=== PATIENT | female | born 1940 | race Caucasian/White ===

== ENCOUNTER 2017-01-17 15:11 | Inpatient (IN) ==
--- NOTE | 2017-01-17 17:16 | Urology - Consult Note ---
Date of Encounter: 01/17/17 Time of Encounter: 17:13 - Assessment and Plan (1) Obstruction of left ureteropelvic junction (UPJ) due to stone Current Visit: Yes Status: Acute Assessment and plan: Patient has obstructing left UPJ stone. We will plan on taking the patient to the operating room tomorrow for cystoscopy and left ureteral stent placement. (2) Acute cystitis without hematuria Current Visit: Yes Status: Acute Assessment and plan: Recommend broad-spectrum antibiotic this time. We will need to send urine culture. Urology CN:HPI Consult date: 01/17/17 Reason for consult Urology: Other (left upj stone) Requesting physician: Babar Witt History of present illness: La Nena is a 76-year-old female with a history of transferred here from outside hospital secondary to obstructing left UPJ stone. Patient appears confused and is unclear regarding her prior stone history. It sounds like to me the patient had a right percutaneous nephrolithotomy with nephrostomy tube placement and stent placement. Documentation supports that the nephrostomy tube was removed either by accident or on purpose. CT scan done today reveals right ureteral stent in good position with residual stones and right lower pole. Patient also with left 9 mm UPJ stone. Patient also with nitrite positive urinalysis. WBC count of 13,000. Patient denies any nausea or vomiting but does state that she has pain throughout her body. She is unable to rate her pain at this time. Review of Systems - Constitutional fever(s) - EENT Nose, mouth and throat: no dizziness - Cardiovascular no chest pain - Respiratory no cough - Gastrointestinal abdominal pain - Musculoskeletal back pain - Integumentary no erythema - Neurological confusion - Psychiatric no anxiety - Hematologic/Lymphatic no easy bleeding Exam Initial Vital Signs Temp Pulse Resp BP Pulse Ox 99.0 F 90 16 181/87 96 01/17/17 16:43 01/17/17 16:43 01/17/17 16:43 01/17/17 16:43 01/17/17 16:43 - General physical appearance Present: well developed - Eyes Present: PERRL - ENT Present: normal nares - Neck Present: no masses - Respiratory Present: normal respiratory effort - Cardiovascular Cardiovascular exam IM: RRR - Abdomen Abdomen: Present: soft - Integumentary Present: no rash Urology Results - Labs All other labs normal. Consult Discharge Plan - Plan Referrals: Goyo Allen MD [Primary Care Provider] -
[2017-01-17] MEDS ORDERED: *HR* Morphine 2 MG/ML SYRINGE IVP PRN (23:07)
[2017-01-17] MEDS ORDERED: 0.9 % Sodium Chloride 1,000 ML IVC SCH (23:15)
[2017-01-18] MEDS ORDERED: Ondansetron ODT 4 MG TAB.RAPDIS SL PRN ×2 (00:51→09:39)
[2017-01-18] MEDS ORDERED: Naloxone 0.4 MG/ML INJ IVP PRN ×2 (00:51→09:39)
--- NOTE | 2017-01-18 00:56 | Internal Med History&Physical ---
<Laurel Alvarado - Last Filed: 01/18/17 00:49> Date of Encounter: 01/18/17 Time of Encounter: 00:30 Assessment and Plan (1) Obstruction of left ureteropelvic junction (UPJ) due to stone Current visit: Yes Status: Acute Patient was a transfer from [facility] due to CT abdomen and pelvis at [facility] showed 0.9mm calculus at the left ureteral pelvic junction. WBC 13,000 Urinalysis from [facility] showed leukocyte Esterase and nitrate positive. Patient has a history of right UPJ stone for which a nephrostomy tube placed at [facility] in October 2016. Patient is afebrile, vital stable. She reports improvement of pain but still has nausea. KUB showed left renal calculi measuring 11 mm at the area ureteral pelvic junction and a right ureteral stent. Urine culture pending Urology to take the patient to the operating room tomorrow for cystoscopy and left ureteral stent placement IV Levaquin IV fluids 80 ml/hr morphine PRN pain NPO Zofran PRN (2) Acute cystitis without hematuria Current visit: Yes Status: Acute Patient reports dysuria for one week duration. She admits frequency, urgency, bladder fullness, nausea. She denies hematuria, fever, chills. WBC 13,000 Urinalysis from [facility] showed leukocyte Esterase and nitrate positive. Patient is afebrile, vital stable. See plan above urine culture pending (3) Diabetes Current visit: Yes Status: Acute Patient reports history of diabetes Accu checks for close glucose monitoring continue home medications once reconciled and confirmed Qualifiers: Diabetes mellitus type: other specified (including WILIAM) Diabetes mellitus complication status: with unspecified complications Qualified Code(s): E13.8 - Other specified diabetes mellitus with unspecified complications (4) Hypertension Current visit: Yes Status: Acute Patient has a history of hypertension continue home medications once they had been reconciled and confirmed Qualifiers: Hypertension type: essential hypertension Qualified Code(s): I10 - Essential (primary) hypertension (5) DVT prophylaxis Current visit: Yes Status: Acute SCDP Internal Medicine - H&P: HPI Chief complaint: back hurts Admitted From: Home Plans for Post Hospital Care: Home History of present illness: Ms. Younger is a 76 year old female past medical history of diabetes, hypertension, and kidney stone presents as a transfer from [facility] due to left 0.9 mm calculus at the left UPJ. The patient reports that her low back pain started a week ago and is progressively worsened. She states that the pain radiates from her low back to her hips and down her legs bilaterally. She stated that she decided to go to the hospital when she can no longer sit up from a chair due to the pain. She admits dysuria, pelvic pressure, nausea. She denies fever, chills, hematuria, chest pain, shortness of breath, abdominal pain. She describes the pain as an achiness. She then went to [facility] initially for treatment. She stated that urinating seemed to help dysuria for short period of time. According to the patient and [facility] records in October 2016 the patient she had a right UPJ stone for which a nephrostomy tube placed at [facility]. However now she has a right ureteral stent. WBC 13,000 Urinalysis from [facility] showed leukocyte Esterase and nitrate positive. CT abdomen and pelvis at [facility] showed 0.9mm calculus at the left ureteral pelvic junction. She denies history of UTIs, travel. She is a full code. KUB showed left renal calculi measuring 11 mm at the area ureteral pelvic junction. And a right ureteral stent. Urine culture was collected. Urology was consulted and plans to take the patient to the operating room tomorrow for cystoscopy and left ureteral stent placement. Past Med Surg Social Fam HX - Past Medical History Medical history: diabetes, hypertension Psychiatric history: no psych history - Past Surgical History Surgical History: cholecystectomy, hysterectomy - Social History Smoking Status: Never smoker Smokeless Tobacco Status: No Alcohol use: none Drug use: none Current living situation: Home - Family History Father History Unknown: Yes Hx Family Neurologic Disorders: Yes (Alzheimer's) Mother Hx Family Cancer: Yes (Unknown) Internal Medicine - H&P: Meds 3 Allergy/AdvReac Type Severity Reaction Status Date / Time No Known Allergies Allergy Verified 01/17/17 17:58 All Systems PM: A 10-system review of systems was performed and is negative for pertinent findings except as documented above in the HPI. - Constitutional Constitutional: anorexia, malaise, no chills, no fever(s) - EENT Eyes: no change in vision - Cardiovascular Cardiovascular ROS IM: no chest pain, no diaphoresis, no palpitations - Respiratory Respiratory: cough, no dyspnea, no wheezing, no excessive phlegm production - Gastrointestinal Gastrointestinal: nausea, no abdominal pain, no diarrhea, no vomiting - Genitourinary Genitourinary: difficulty urinating, dysuria, flank pain, urinary frequency, urinary urgency, no hematuria, no vaginal pruritis - Musculoskeletal Musculoskeletal ROS IM: back pain, muscle weakness - Integumentary Integumentary IM: no erythema, no rash - Neurological Neurological ROS: no dizziness, no frequent falls, no headache(s) - Endocrine Endocrine IM: no flushing - Constitutional Vitals: Temp Pulse Resp BP Pulse Ox 98.4 F 92 16 174/74 96 01/18/17 00:00 01/18/17 00:00 01/18/17 00:00 01/18/17 00:00 01/18/17 00:00 General appearance: Present: A&O X 3, pleasant, no acute distress - Head Head exam: Present: atraumatic, normocephalic - Eye Eye exam: Present: conjuntiva pink. Absent: scleral icterus - ENT ENT exam: Present: mucous membranes dry - Respiratory Respiratory exam: Present: CTAB. Absent: rales, rhonchi, wheezes - Cardiovascular Cardiovascular exam: Present: RRR, +S1, +S2. Absent: clicks - GI/Abdominal GI/Abdominal exam: Present: normal bowel sounds, soft. Absent: firm, guarding - Extremities Exam Extremities exam: Present: normal inspection, tenderness, warm. Absent: joint swelling - Back Exam Back exam: Present: CVA tenderness (L), CVA tenderness (R). Absent: rash noted - Psychiatric Psychiatric exam: Present: normal affect, normal mood - Skin Skin exam: Present: dry, intact. Absent: rash Internal Med - H&P Results - Impressions ITS Impressions KUB X-Ray 01/17/17 17:13 IMPRESSION: Right ureteral stent noted. Left-sided renal calculi. Possible calculus at the left ureteropelvic junction. Again, no comparisons are available to gauge stability. D/ / Keenan Harmon MD / Keenan Harmon MD Interpreting Provider: Keenan Harmon MD <David Roberts - Last Filed: 01/18/17 06:32> Date of Encounter: 01/18/17 Internal Medicine - H&P: HPI History of present illness: Ms. Younger is a 76 year old female All Systems PM: A 10-system review of systems was performed and is negative for pertinent findings except as documented above in the HPI. - Constitutional Vitals: Temp Pulse Resp BP Pulse Ox 97.9 F 83 16 167/76 96 01/18/17 04:00 01/18/17 04:00 01/18/17 04:00 01/18/17 04:00 01/18/17 04:00 Internal Med - H&P Results - Labs CBC & Chem 7: 01/18/17 05:18 01/18/17 05:18 Labs: Short CBC 01/18/17 Range/Units 05:18 WBC 12.9 H (4.3-11.1) K/mcL Hgb 12.2 (11.5-15.4) g/dL Hct 37.7 (35.3-44.9) % Plt Count 380 (140-400) K/mcL Neutrophils # 10.1 H (1.6-8.9) K/mcL BMP 01/18/17 05:18 Sodium 138 Potassium 3.5 Chloride 106 Carbon Dioxide 21 BUN 13 Creatinine 1.15 H Glucose 296 H Calcium 8.8 - Impressions ITS Impressions KUB X-Ray 01/17/17 17:13 IMPRESSION: Right ureteral stent noted. Left-sided renal calculi. Possible calculus at the left ureteropelvic junction. Again, no comparisons are available to gauge stability. D/ / Keenan Harmon MD / Keenan Harmon MD Interpreting Provider: Keenan Harmon MD - Attending Attestation I conducted a face to face diagnostic evaluation of this patient and my medical decision-making was reviewed with the Resident Physician, Dr. Laurel Alvarado. I agree with the documented findings, disposition and treatment plan as described except to the extent set forth below: The patient is in no acute distress awake alert and oriented. Heart is regular , lungs are clear. Abdomen is soft and nontender. There is a healing surgical incision in the right lumbar area consistent with recent placement of nephrostomy tube. Per review of [facility] records patient had a right nephrostomy tube that she accidentally pulled out and the nephrostomy was internalized one week ago. Plan: IV antibiotics. IV fluids. Nothing by mouth. Urology consult.
[2017-01-18] MEDS ORDERED: Levofloxacin 750 MG/150 ML 750 MG/150 ML BAG IVPB SCH (02:00)
[2017-01-18 05:51] LABS: Basophils % 0.3 %; Eosinophils # 0.1 K/mcL (0.0-0.6); Eosinophils % 0.5 %; Hematocrit 37.7 % (35.3-44.9); Hemoglobin 12.2 g/dL (11.5-15.4); Immature Granulocytes % 0.6 % (0-4); Lymphocytes # 1.6 K/mcL (0.6-4.6); Lymphocytes % 12.2 %; Mean Corpuscular HGB Conc 32.4 g/dL (31.6-35.5); Mean Corpuscular Volume 83.4 fL (83.0-100.0); Mean Platelet Volume 10.1 fL (9.4-12.4); Neutrophils # 10.1 K/mcL (1.6-8.9); Platelet Count 380 K/mcL (140-400); Red Blood Count 4.52 M/mcL (3.82-4.97); Red Cell Distribution Width 14.5 % (11.5-14.5); Segmented Neutrophils % 78.4 %
[2017-01-18 06:02] LABS: Calcium 8.8 mg/dL (8.6-10.8); Potassium 3.5 mEq/L (3.5-4.5)
--- NOTE | 2017-01-18 07:15 | Urology Progress Note ---
Date of Encounter: 01/18/17 Time of Encounter: 07:15 - Assessment and Plan (1) Obstruction of left ureteropelvic junction (UPJ) due to stone Current Visit: Yes Status: Acute Assessment and plan: to or today for cysto and ureteral stent placement on left side (2) Acute cystitis without hematuria Current Visit: Yes Status: Acute Progress Note Narrative: patient seen. doing ok. Objective Initial Vital Signs Temp Pulse Resp BP Pulse Ox 99.0 F 90 16 181/87 96 01/17/17 16:43 01/17/17 16:43 01/17/17 16:43 01/17/17 16:43 01/17/17 16:43 - General physical appearance Present: well developed - Abdomen Present: soft - Labs 01/18/17 05:18 01/18/17 05:18 Diabetes panel 01/18/17 Range/Units 05:18 Sodium 138 (136-145) mEq/L Potassium 3.5 (3.5-4.5) mEq/L Chloride 106 (98-109) mEq/L Carbon Dioxide 21 (19-29) mEq/L BUN 13 (7-20) mg/dL Creatinine 1.15 H (0.57-1.11) mg/dL Glucose 296 H (70-99) mg/dL Calcium 8.8 (8.6-10.8) mg/dL Calcium panel 01/18/17 Range/Units 05:18 Calcium 8.8 (8.6-10.8) mg/dL Pituitary panel 01/18/17 Range/Units 05:18 Sodium 138 (136-145) mEq/L Potassium 3.5 (3.5-4.5) mEq/L Chloride 106 (98-109) mEq/L Carbon Dioxide 21 (19-29) mEq/L BUN 13 (7-20) mg/dL Creatinine 1.15 H (0.57-1.11) mg/dL Glucose 296 H (70-99) mg/dL Calcium 8.8 (8.6-10.8) mg/dL Adrenal panel 01/18/17 Range/Units 05:18 Sodium 138 (136-145) mEq/L Potassium 3.5 (3.5-4.5) mEq/L Chloride 106 (98-109) mEq/L Carbon Dioxide 21 (19-29) mEq/L BUN 13 (7-20) mg/dL Creatinine 1.15 H (0.57-1.11) mg/dL Glucose 296 H (70-99) mg/dL Calcium 8.8 (8.6-10.8) mg/dL Consult Discharge Plan - Plan Referrals: Goyo Allen MD [Primary Care Provider] -
--- NOTE | 2017-01-18 07:31 | Anesthesia Evaluation PreOp ---
Date of Encounter: 01/18/17 Time of Encounter: 07:24 - Past History Planned Operation: Cysto L ureteral stent Cardiac History: HTN Pulmonary History: Denies Any Significant HX Other Medical History: Diabetes Type II Anesthesia History: No Prior Anesthetic Complications, Past Anesthesia ( cholecystectomy, hysterectomy) Alcohol Use: none Drug use: none Medications and Allergies 3 Allergy/AdvReac Type Severity Reaction Status Date / Time No Known Allergies Allergy Verified 01/17/17 17:58 - Meds/Allergy Pre-op Review Medications Reviewed: Yes Allergies Reviewed: Yes Beta Blockers on Current Med List: No Anesthesia Results - Labs 01/18/17 05:18 01/18/17 05:18 Anesthesia Exam Vital Signs/O2 Sat, Most Current Temp Pulse Resp BP Pulse Ox 98.1 F 88 16 168/72 96 01/18/17 06:20 01/18/17 06:20 01/18/17 06:20 01/18/17 06:20 01/18/17 06:20 Height: 1.57m Weight: 96kg NPO (# of Hours): >8 - HEENT Pupil (Motor): Pupils equal, EOMI Mallampati: III Teeth: Poor dentition Oral Opening: Less than or equal to 3 - JEWELRY STORE MANAGER LOC: Oriented JEWELRY STORE MANAGER Motor: Normal RUE, Normal LUE, Normal RLE, Normal LLE, Normal Face JEWELRY STORE MANAGER Sensory: Normal: RUE, LUE, RLE, LLE, Face - Cardiac Rhythm: Regular - Pulmonary Breath Sounds: bilateral Clear Respiratory Effort: Symmetrical Anesthesia Assess/Plan ASA Score: 2 Modified Fatou Scale for Level of Consciousness: Cooperative, oriented, and tranquil Anesthetic Plan: General (r/b/a discussed, questions answered, consent obtained) Monitoring Plan: Standard Monitors Recovery Plan: PACU
[2017-01-18] MEDS ORDERED: Lidocaine -MPF 2% 2 ML VIAL ONE (07:34)
[2017-01-18] MEDS ORDERED: *HR* FentaNYL (PF) 100 MCG/2 ML VIAL ONE (07:35)
[2017-01-18] MEDS ORDERED: *HR* Propofol 200 MG/20 ML VIAL IVP ONE (07:35)
[2017-01-18] MEDS ORDERED: Ondansetron 4 MG/2 ML VIAL IVP ONE (07:39)
[2017-01-18] MEDS ORDERED: *HR* HYDROmorphone (PF) 1 MG/ML SYRINGE IVP PRN (07:39)
[2017-01-18] MEDS ORDERED: *HR* Meperidine 25 MG/ML SYRINGE IVP PRN (07:39)
[2017-01-18] MEDS ORDERED: Ringers Solution, Lactated 1,000 ML IVC SCH (07:45)
[2017-01-18] MEDS ORDERED: Ondansetron 4 MG/2 ML VIAL ONE (08:18)
[2017-01-18] MEDS ORDERED: Dexamethasone 4 MG/ML VIAL ONE (08:18)
--- NOTE | 2017-01-18 08:30 | Operative Note ---
Date of procedure: 01/18/17 Pre-op diagnosis: left upj stone with uti Post-op diagnosis: same Procedure: Cystoscopy and left 6 x 26 cm ureteral stent placement Anesthesia: BILLY Surgeon: Sotero Jin Condition: stable Disposition: PACU Procedure in Detail: Patient was prepped and draped in normal sterile fashion. Timeout procedure performed. I then inserted the cystoscope into the patient's bladder. I cannulated the left ureteral orifice using a Glidewire. This easily passed the left UPJ stone. I then was able to place a 6 x 24 cm stent with good curl seen in the bladder but the proximal curl was too short. I grabbed the stent and brought this out. Glidewire was placed back into the left ureteral orifice into the left kidney. I then placed a 6 x 26 cm stent with good curl seen in the upper pole of the kidney and in the bladder. Bladder was drained procedure was ended. Patient taken to PACU in stable condition.
[2017-01-18] MEDS ORDERED: *HR* Labetalol 20 MG/4 ML SYRINGE IVP ONE (09:04)
--- NOTE | 2017-01-18 09:07 | Anesthesia Evaluation Post Op ---
Date of Encounter: 01/18/17 Time of Encounter: 09:06 - Vital Signs Vital Signs: Vital Signs/O2 Sat, Most Current Temp Pulse Resp BP Pulse Ox 98.0 F 75 12 182/76 100 01/18/17 09:03 01/18/17 09:03 01/18/17 09:03 01/18/17 09:03 01/18/17 09:03 - Lungs Lungs: Clear Ascult./Percussion - Airway Airway: Non-obstructed - Cardiovascular Regular Rate - Mental Status Mental Status: Alert & Oriented, Answers Appropriately - Pain Pain Scale: 0 Pain Scale used: Numeric (1 - 10) - Nausea Vomiting Nausea Vomiting: Not Present - Hydration Hydration: NPO - Discharge PostOp Status: Transfer Patient to floor Attestation: I have assessed this patient and find they meet discharge criteria.
[2017-01-18] MEDS: *HR* Morphine 2 MG/ML SYRINGE IVP PRN ×2 (09:49→22:07)
[2017-01-18] MEDS: 0.9 % Sodium Chloride 1,000 ML IVC SCH ×2 (09:51→22:00)
--- NOTE | 2017-01-18 11:09 | Internal Med Progress Note ---
Date of Encounter: 01/18/17 Time of Encounter: 11:06 - Assessment and plan (1) Obstruction of left ureteropelvic junction (UPJ) due to stone Current Visit: Yes Status: Acute Assessment and plan: Patient was a transfer from [facility] due to CT abdomen and pelvis at [facility] showed 0.9mm calculus at the left ureteral pelvic junction. WBC 13,000 Urinalysis from [facility] showed leukocyte Esterase and nitrate positive. Patient has a history of right UPJ stone for which a nephrostomy tube placed at [facility] in October 2016. Patient is afebrile, vital stable. She reports improvement of pain but still has nausea. KUB showed left renal calculi measuring 11 mm at the area ureteral pelvic junction and a right ureteral stent. Urine culture pending, on levaquin Urology was consulted, had cystoscopy and left ureteral stent placement, tolerated procedure well. (2) Acute cystitis without hematuria Current Visit: Yes Status: Acute Assessment and plan: Continue Levaquin (3) Diabetes Current Visit: Yes Status: Chronic Assessment and plan: Not on medication will check A1c Qualifiers: Diabetes mellitus type: type 2 Diabetes mellitus complication status: with diabetic arthropathy Diabetes mellitus complication detail: with other arthropathy Diabetes mellitus restaurant greeter insulin use: without restaurant greeter use Qualified Code(s): E11.618 - Type 2 diabetes mellitus with other diabetic arthropathy (4) Hypertension Current Visit: Yes Status: Acute Assessment and plan: Patient was not on any medication before admission, she said that she was placed on some medication but stopped it due to cough. Will add amlodipine. Qualifiers: Hypertension type: essential hypertension Qualified Code(s): I10 - Essential (primary) hypertension (5) DVT prophylaxis Current Visit: Yes Status: Acute Assessment and plan: We will place subcutaneous heparin (6) Morbid obesity due to excess calories Current Visit: Yes Status: Chronic - Time Spent With Patient 25 - 35 minutes - Subjective Interval history: Patient was a transfer from [facility] due to CT abdomen and pelvis at [facility] showed 0.9mm calculus at the left ureteral pelvic junction. WBC 13,000 Urinalysis from [facility] showed leukocyte Esterase and nitrate positive. Patient report she was having burning or frequency urination for a few days and lower back pain. now she feels better, back pain resolved. She was not on blood pressure medications but her pressure is significantly elevated. We discussed her medical treatment for blood pressure. - Constitutional Vitals: Temp Pulse Resp BP Pulse Ox 98.4 F 82 12 198/73 95 01/18/17 09:40 01/18/17 09:40 01/18/17 09:40 01/18/17 09:40 01/18/17 09:40 CONSTITUTIONAL: patient appears as an age appropriate female in no acute distress. EYES Clear sclerae, bilateral pupils are equal, reactive to light. EMOI. RESPIRATORY: No accessory muscle use, bilateral clear to auscultation, no wheezing, no crackles/rales. CARDIOVASCULAR: Regular heart rate, normal S1 and S2, no murmurs GASTROINTESTINAL: bowel sounds present, soft, no tenderness. MUSCULOSKELETAL: Joints in normal range of motion, no clubbing, no edema, no cyanosis. Bilateral peripheral pulses 2+. NEUROLOGIC: CN II to XII are grossly intact, no focal neurological deficit. General appearance: Present: A&O X 3, pleasant, no acute distress Internal Medicine: Result - Labs CBC & Chem 7: 01/18/17 05:18 01/18/17 05:18 Labs: Short CBC 01/18/17 Range/Units 05:18 WBC 12.9 H (4.3-11.1) K/mcL Hgb 12.2 (11.5-15.4) g/dL Hct 37.7 (35.3-44.9) % Plt Count 380 (140-400) K/mcL Neutrophils # 10.1 H (1.6-8.9) K/mcL BMP 01/18/17 05:18 Sodium 138 Potassium 3.5 Chloride 106 Carbon Dioxide 21 BUN 13 Creatinine 1.15 H Glucose 296 H Calcium 8.8 - Impressions Impressions KUB X-Ray 01/17/17 17:13 IMPRESSION: Right ureteral stent noted. Left-sided renal calculi. Possible calculus at the left ureteropelvic junction. Again, no comparisons are available to gauge stability. D/ / Keenan Harmon MD / Keenan Harmon MD Interpreting Provider: Keenan Harmon MD Fluoroscopy 01/18/17 00:00 IMPRESSION: Intraprocedural fluoroscopic spot images as above. See separate procedure report for more information. D/ / 01/18/2017 09:04:21 Rylee Man / Michelle Joyner Interpreting Provider: Rylee Man Consult Discharge Plan - Plan Referrals: Goyo Allen MD [Primary Care Provider] -
[2017-01-18] MEDS: *HR* Heparin 5,000 UNIT/ML VIAL SQ SCH ×2 (16:35→21:59)
[2017-01-19] MEDS: *HR* Heparin 5,000 UNIT/ML VIAL SQ SCH ×3 (05:41→21:49)
[2017-01-19 06:29] LABS: Basophils % 0.2 %; Eosinophils % 0.2 %; Immature Granulocytes % 0.5 % (0-4); Lymphocytes # 1.9 K/mcL (0.6-4.6); Lymphocytes % 14.8 %; Mean Corpuscular HGB Conc 32.4 g/dL (31.6-35.5); Mean Corpuscular Volume 83.1 fL (83.0-100.0); Neutrophils # 9.8 K/mcL (1.6-8.9); Platelet Count 422 K/mcL (140-400); Red Blood Count 4.45 M/mcL (3.82-4.97); Red Cell Distribution Width 14.4 % (11.5-14.5); Segmented Neutrophils % 76.3 %
[2017-01-19 06:32] LABS: BUN/Creatinine Ratio 16 (6-26); Blood Urea Nitrogen 15 mg/dL (7-20); Carbon Dioxide 19 mEq/L (19-29); Chloride 111 mEq/L (98-109); Glucose 286 mg/dL (70-99); Osmolality,Calculated 299 (280-300); Potassium 2.8 mEq/L (3.5-4.5); Sodium 139 mEq/L (136-145); eGFR For African Americans > 60 (> 60); eGFR For Non-African Americans 59 (> 60)
[2017-01-19 06:36] LABS: Calcium 7.1 mg/dL (8.6-10.8)
[2017-01-19] MEDS ORDERED: amLODIPine 5 MG TABLET PO SCH (09:00)
--- NOTE | 2017-01-19 09:23 | Internal Med Progress Note ---
Date of Encounter: 01/19/17 Time of Encounter: 09:21 - Assessment and plan (1) Obstruction of left ureteropelvic junction (UPJ) due to stone Current Visit: Yes Status: Acute Assessment and plan: Patient was a transfer from [facility] due to CT abdomen and pelvis at [facility] showed 0.9mm calculus at the left ureteral pelvic junction. WBC 13,000 Urinalysis from [place] showed leukocyte Esterase and nitrate positive. Patient has a history of right UPJ stone for which a nephrostomy tube placed at [facility] in October 2016. Patient is afebrile, vital stable. She reports improvement of pain but still has nausea. KUB showed left renal calculi measuring 11 mm at the area ureteral pelvic junction and a right ureteral stent. Urology was consulted, had cystoscopy and left ureteral stent placement on January 18, tolerated procedure well. Patient continues complaining of burning urination and lower back pain urine looks cloudy we will recheck UA, and a change antibiotics to ceftriaxone. (2) Acute cystitis without hematuria Current Visit: Yes Status: Acute Assessment and plan: change levofloxacin to ceftriaxone (3) Diabetes Current Visit: Yes Status: Chronic Assessment and plan: Not on medication, pending A1c (4) Hypertension Current Visit: Yes Status: Acute Assessment and plan: Patient was not on any medication before admission, she said that she was placed on some medication but stopped it due to cough. BP improved we will increase amlodipine to 10 mg amlodipine. Qualifiers: Hypertension type: essential hypertension Qualified Code(s): I10 - Essential (primary) hypertension (5) DVT prophylaxis Current Visit: Yes Status: Acute Assessment and plan: We will place subcutaneous heparin (6) Morbid obesity due to excess calories Current Visit: Yes Status: Chronic - Time Spent With Patient Greater than 35 minutes - Subjective Interval history: Patient was a transfer from [facility] due to CT abdomen and pelvis at [facility] showed 0.9mm calculus at the left ureteral pelvic junction. WBC 13,000 Urinalysis from [place] showed leukocyte Esterase and nitrate positive. Urology was consulted and she had a cystoscope and the left ureteral stents placement on she tolerated procedure well. Patient is afebrile now, she still complaining burning and painful urination and that persistent lower back pain.. - Constitutional Vitals: Temp Pulse Resp BP Pulse Ox 98.1 F 69 18 165/74 97 11/26/17 07:05 01/19/17 07:05 01/19/17 07:05 01/19/17 07:05 01/19/17 07:05 CONSTITUTIONAL: patient appears as an age appropriate [female] in no acute distress. EYES Clear sclerae, bilateral pupils are equal, reactive to light. EMOI. RESPIRATORY: No accessory muscle use, bilateral clear to auscultation, no wheezing, no crackles/rales. CARDIOVASCULAR: Regular heart rate, normal S1 and S2, no murmurs GASTROINTESTINAL: bowel sounds present, soft, no tenderness. MUSCULOSKELETAL: Joints in normal range of motion, no clubbing, no edema, no cyanosis. Bilateral peripheral pulses 2+. NEUROLOGIC: CN II to XII are grossly intact, no focal neurological deficit. General appearance: Present: A&O X 3, pleasant, no acute distress Internal Medicine: Result - Labs CBC & Chem 7: 01/19/17 06:10 01/19/17 06:10 Labs: Short CBC 01/19/17 Range/Units 06:10 WBC 12.9 H (4.3-11.1) K/mcL Hgb 12.0 (11.5-15.4) g/dL Hct 37.0 (35.3-44.9) % Plt Count 422 H (140-400) K/mcL Neutrophils # 9.8 H (1.6-8.9) K/mcL BMP 01/19/17 06:10 Sodium 139 Potassium 2.8 L Chloride 111 H Carbon Dioxide 19 BUN 15 Creatinine 0.93 Glucose 286 H Calcium 7.1 L D - Impressions Impressions Fluoroscopy 01/18/17 00:00 IMPRESSION: Intraprocedural fluoroscopic spot images as above. See separate procedure report for more information. D/ / 01/18/2017 09:04:21 Rylee Man / Michelle Joyner Interpreting Provider: Rylee Man - VTE Documentation of Mechanical Device: Intermittent pneumatic compression device Consult Discharge Plan - Plan Referrals: Goyo Allen MD [Primary Care Provider] -
[2017-01-19] MEDS ORDERED: amLODIPine 5 MG TABLET PO ONE (09:45)
[2017-01-19] MEDS: cefTRIAXone 1,000 MG in Water for inj. (sterile) 10 ML IVP SCH (11:14)
[2017-01-19] MEDS: *HR* Morphine 2 MG/ML SYRINGE IVP PRN (11:29)
--- NOTE | 2017-01-19 12:09 | Urology Progress Note ---
Date of Encounter: 01/19/17 Time of Encounter: 12:07 - Assessment and Plan (1) Obstruction of left ureteropelvic junction (UPJ) due to stone Current Visit: Yes Status: Acute Assessment and plan: sp stenting. patient now has bilateral ureteral stents. (2) Acute cystitis without hematuria Current Visit: Yes Status: Acute Assessment and plan: awaiting ucx results. patient will need 2 weeks of abx. will contiue to follow. Progress Note Narrative: POD 1 from cysto and left ureteral stent placement. feeling better. Objective Initial Vital Signs Temp Pulse Resp BP Pulse Ox 99.0 F 90 16 181/87 96 01/17/17 16:43 01/17/17 16:43 01/17/17 16:43 01/17/17 16:43 01/17/17 16:43 - General physical appearance Present: well developed - Abdomen Present: soft - Labs 01/19/17 06:10 01/19/17 06:10 Diabetes panel 01/19/17 Range/Units 06:10 Sodium 139 (136-145) mEq/L Potassium 2.8 L (3.5-4.5) mEq/L Chloride 111 H (98-109) mEq/L Carbon Dioxide 19 (19-29) mEq/L BUN 15 (7-20) mg/dL Creatinine 0.93 (0.57-1.11) mg/dL Glucose 286 H (70-99) mg/dL Calcium 7.1 L D (8.6-10.8) mg/dL Calcium panel 01/19/17 Range/Units 06:10 Calcium 7.1 L D (8.6-10.8) mg/dL Pituitary panel 01/19/17 Range/Units 06:10 Sodium 139 (136-145) mEq/L Potassium 2.8 L (3.5-4.5) mEq/L Chloride 111 H (98-109) mEq/L Carbon Dioxide 19 (19-29) mEq/L BUN 15 (7-20) mg/dL Creatinine 0.93 (0.57-1.11) mg/dL Glucose 286 H (70-99) mg/dL Calcium 7.1 L D (8.6-10.8) mg/dL Adrenal panel 01/19/17 Range/Units 06:10 Sodium 139 (136-145) mEq/L Potassium 2.8 L (3.5-4.5) mEq/L Chloride 111 H (98-109) mEq/L Carbon Dioxide 19 (19-29) mEq/L BUN 15 (7-20) mg/dL Creatinine 0.93 (0.57-1.11) mg/dL Glucose 286 H (70-99) mg/dL Calcium 7.1 L D (8.6-10.8) mg/dL - VTE Documentation of Mechanical Device: Intermittent pneumatic compression device Consult Discharge Plan - Plan Referrals: Goyo Allen MD [Primary Care Provider] -
[2017-01-19 13:12] LABS: Bilirubin,Urine Negative (Negative); Blood,Urine Large (Negative); Clarity,Urine Turbid (Clear); Color,Urine Red (Yellow); Glucose,Urine (UA) >=1000 mg/dL (Normal); Ketones,Urine Trace mg/dL (Negative); Leukocyte Esterase,Urine Large (Negative); Nitrite,Urine Negative (Negative); Protein,Urine 100 mg/dL (Neg-Trace); Specific Gravity,Urine 1.018 (1.010-1.025); Urobilinogen,Urine Normal (Normal)
[2017-01-19 13:14] LABS: Bacteria,Urine None Seen per hpf (None-Few); Hyaline Casts,Urine None Seen per lpf (None-Few); Squamous Epithelial Cell,Urine Many per lpf (None-Few); WBC,Urine TNTC per hpf (0-3)
[2017-01-19 13:16] LABS: RBC,Urine TNTC per hpf (0-3)
[2017-01-19] MEDS: 0.9 % Sodium Chloride 1,000 ML IVC SCH ×2 (13:30→22:05)
[2017-01-19] MEDS: Insulin LISPRO 300 UNITS/3 ML VIAL SQ SCH ×2 (15:22→21:50)
[2017-01-19] MEDS: Insulin DETEMIR 100 UNIT/ML X5UNITS SQ SCH ×2 (16:07→21:49)
[2017-01-20] MEDS ORDERED: Levofloxacin 750 MG/150 ML 750 MG/150 ML BAG IVPB SCH (02:00)
[2017-01-20 05:05] LABS: Basophils % 0.4 %; Eosinophils # 0.1 K/mcL (0.0-0.6); Eosinophils % 1.1 %; Hematocrit 39.6 % (35.3-44.9); Hemoglobin 12.5 g/dL (11.5-15.4); Immature Granulocytes % 0.6 % (0-4); Lymphocytes # 1.7 K/mcL (0.6-4.6); Lymphocytes % 17.4 %; Mean Corpuscular HGB Conc 31.6 g/dL (31.6-35.5); Mean Corpuscular Hemoglobin 26.7 pg (28.0-33.3); Mean Corpuscular Volume 84.6 fL (83.0-100.0); Monocytes # 0.8 K/mcL (0.0-1.3); Monocytes % 8.1 %; Platelet Count 417 K/mcL (140-400); Red Blood Count 4.68 M/mcL (3.82-4.97); Red Cell Distribution Width 14.6 % (11.5-14.5); Segmented Neutrophils % 72.4 %
[2017-01-20 05:17] LABS: BUN/Creatinine Ratio 18 (6-26); Blood Urea Nitrogen 19 mg/dL (7-20); Carbon Dioxide 26 mEq/L (19-29); Chloride 106 mEq/L (98-109); Glucose 220 mg/dL (70-99); Magnesium 1.8 mg/dL (1.6-2.6); Osmolality,Calculated 297 (280-300); Sodium 139 mEq/L (136-145); eGFR For African Americans > 60 (> 60); eGFR For Non-African Americans 51 (> 60)
[2017-01-20 05:18] LABS: Calcium 8.9 mg/dL (8.6-10.8); Potassium 3.9 mEq/L (3.5-4.5)
[2017-01-20] MEDS: *HR* Morphine 2 MG/ML SYRINGE IVP PRN ×3 (05:23→17:28)
[2017-01-20] MEDS: *HR* Heparin 5,000 UNIT/ML VIAL SQ SCH ×3 (05:23→22:34)
[2017-01-20] MEDS: amLODIPine 5 MG TABLET PO SCH (08:22)
[2017-01-20] MEDS: cefTRIAXone 1,000 MG in Water for inj. (sterile) 10 ML IVP SCH (08:23)
[2017-01-20] MEDS: Insulin DETEMIR 100 UNIT/ML X5UNITS SQ SCH ×2 (08:29→22:32)
[2017-01-20] MEDS: Insulin LISPRO 300 UNITS/3 ML VIAL SQ SCH ×4 (08:29→22:34)
--- NOTE | 2017-01-20 08:44 | Urology Progress Note ---
Date of Encounter: 01/20/17 Time of Encounter: 08:43 - Assessment and Plan (1) Obstruction of left ureteropelvic junction (UPJ) due to stone Current Visit: Yes Status: Acute Assessment and plan: sp stenting. patient can f/u with me in 2-3 weeks for discussion of tx of bilateral stones. (2) Acute cystitis without hematuria Current Visit: Yes Status: Acute Assessment and plan: ucx either not done or missed. still would recommend abx for 2 weeks. Progress Note Narrative: patient seen this am. sleeping. Objective Initial Vital Signs Temp Pulse Resp BP Pulse Ox 99.0 F 90 16 181/87 96 01/17/17 16:43 01/17/17 16:43 01/17/17 16:43 01/17/17 16:43 01/17/17 16:43 - General physical appearance Present: well developed - Abdomen Present: soft - Labs 01/20/17 04:34 01/20/17 04:34 Diabetes panel 01/20/17 Range/Units 04:34 Sodium 139 (136-145) mEq/L Potassium 3.9 D (3.5-4.5) mEq/L Chloride 106 (98-109) mEq/L Carbon Dioxide 26 (19-29) mEq/L BUN 19 (7-20) mg/dL Creatinine 1.06 (0.57-1.11) mg/dL Glucose 220 H (70-99) mg/dL Calcium 8.9 D (8.6-10.8) mg/dL Calcium panel 01/20/17 Range/Units 04:34 Calcium 8.9 D (8.6-10.8) mg/dL Pituitary panel 01/20/17 Range/Units 04:34 Sodium 139 (136-145) mEq/L Potassium 3.9 D (3.5-4.5) mEq/L Chloride 106 (98-109) mEq/L Carbon Dioxide 26 (19-29) mEq/L BUN 19 (7-20) mg/dL Creatinine 1.06 (0.57-1.11) mg/dL Glucose 220 H (70-99) mg/dL Calcium 8.9 D (8.6-10.8) mg/dL Adrenal panel 01/20/17 Range/Units 04:34 Sodium 139 (136-145) mEq/L Potassium 3.9 D (3.5-4.5) mEq/L Chloride 106 (98-109) mEq/L Carbon Dioxide 26 (19-29) mEq/L BUN 19 (7-20) mg/dL Creatinine 1.06 (0.57-1.11) mg/dL Glucose 220 H (70-99) mg/dL Calcium 8.9 D (8.6-10.8) mg/dL - VTE Documentation of Mechanical Device: Intermittent pneumatic compression device Consult Discharge Plan - Plan Referrals: Goyo Allen MD [Primary Care Provider] -
[2017-01-20] MEDS: 0.9 % Sodium Chloride 1,000 ML IVC SCH (12:02)
[2017-01-20] MEDS ORDERED: Dextrose Gel 15 GM PO PRN ×2 (12:34)
[2017-01-20] MEDS ORDERED: D5% in Water 1,000 ML IVC PRN (12:34)
[2017-01-20] MEDS ORDERED: *HR* Dextrose 50 % in Water (Syg) 50 ML SYRINGE IVP PRN (12:34)
--- NOTE | 2017-01-20 15:15 | Internal Med Progress Note ---
Date of Encounter: 01/20/17 Time of Encounter: 15:10 - Assessment and plan (1) Back pain Current Visit: Yes Status: Acute Assessment and plan: Complaining of lower back pain radiating to left lower extremity with the positive neurological examination. Order MRI LS spine. According to her this happen after surgery today? Qualifiers: Back pain location: low back pain Back pain laterality: unspecified Sciatica presence: unspecified whether sciatica present Qualified Code(s): M54.5 - Low back pain (2) Obstruction of left ureteropelvic junction (UPJ) due to stone Current Visit: Yes Status: Acute Assessment and plan: Transfer from [facility] due to CT abdomen and pelvis at [facility] showed 0.9mm calculus at the left ureteral pelvic junction. WBC 13,000 Urinalysis from [place] showed leukocyte Esterase and nitrate positive , Not sure if urine cultures were done. She had right UPJ stone for which a nephrostomy tube placed at [facility] in October 2016. KUB showed left renal calculi measuring 11 mm at the area ureteral pelvic junction and a right ureteral stent. Urology was consulted, had cystoscopy and left ureteral stent placement on January 18, tolerated procedure well. Patient continues complaining of burning urination and lower back pain urine looks cloudy we will recheck UA, and a change antibiotics to ceftriaxone. (3) Acute cystitis without hematuria Current Visit: Yes Status: Acute Assessment and plan: On ceftriaxone . Since she was transferred from another hospital not sure if urine culture was done. Dr. Salas saw the patient yesterday (4) Diabetes Current Visit: Yes Status: Chronic Assessment and plan: Accu check aC/hs & SSI, pending A1c Qualifiers: Diabetes mellitus type: type 2 Diabetes mellitus complication status: with diabetic arthropathy Diabetes mellitus complication detail: with other arthropathy Diabetes mellitus longterm insulin use: without intermediate designer use Qualified Code(s): E11.618 - Type 2 diabetes mellitus with other diabetic arthropathy (5) Hypertension Current Visit: Yes Status: Acute Assessment and plan: 10 mg amlodipine. Qualifiers: Hypertension type: essential hypertension Qualified Code(s): I10 - Essential (primary) hypertension - Subjective Interval history: Admitted for left ureteric stone status post stent, previously had right-sided stone and right-sided stent. Also has UTI and hematuria. Today postprocedure complaining of lower back pain and cannot move her left leg.r it is positiv SLR and reverse SLR positive. Order MRI LS spine - Constitutional Vitals: Temp Pulse Resp BP Pulse Ox 98.4 F 77 14 127/69 96 01/20/17 12:25 01/20/17 12:25 01/20/17 12:25 01/20/17 12:25 01/20/17 12:25 General appearance: Present: A&O X 3, pleasant, no acute distress - Head Head exam: Present: atraumatic, normocephalic - Eye Eye exam: Present: PERRL, conjuntiva pink, sclera anicteric Pupils: Present: PERRL - Neck Neck exam general surgery: Present: supple, trachea midline. Absent: lymphadenopathy - Respiratory Respiratory exam: Present: CTAB. Absent: accessory muscle use, rales, rhonchi, wheezes - Cardiovascular Cardiovascular exam: Present: RRR, +S1, +S2. Absent: diastolic murmur, gallop, rubs, systolic murmur - GI/Abdominal GI/Abdominal exam: Present: normal bowel sounds, soft, no peritoneal signs. Absent: distended, tenderness - Extremities Exam Extremities exam: Present: warm, radial pulses palpable and symmetrical. Absent : calf tenderness, cyanotic, pedal edema - Neurological Exam Neurological exam: Present: CN II-XII intact, oriented X3. Absent: pronater drift, facial droop, speech deficit Additional comments: Bilateral lower extremity weakness 4/5. SLR positive, DTR DTR diminished, no ankle clonus - Skin Skin exam: Present: dry, intact Internal Medicine: Result - Labs CBC & Chem 7: 01/20/17 04:34 01/20/17 04:34 Labs: Short CBC 01/20/17 Range/Units 04:34 WBC 9.6 (4.3-11.1) K/mcL Hgb 12.5 (11.5-15.4) g/dL Hct 39.6 (35.3-44.9) % Plt Count 417 H (140-400) K/mcL Neutrophils # 7.0 (1.6-8.9) K/mcL BMP 01/20/17 04:34 Sodium 139 Potassium 3.9 D Chloride 106 Carbon Dioxide 26 BUN 19 Creatinine 1.06 Glucose 220 H Calcium 8.9 D - VTE Documentation of Mechanical Device: Intermittent pneumatic compression device Consult Discharge Plan - Plan Referrals: Goyo Allen MD [Primary Care Provider] -
[2017-01-21] MEDS: *HR* Morphine 2 MG/ML SYRINGE IVP PRN ×2 (00:55→09:28)
[2017-01-21] MEDS: 0.9 % Sodium Chloride 1,000 ML IVC SCH (02:23)
[2017-01-21] MEDS: *HR* Heparin 5,000 UNIT/ML VIAL SQ SCH ×3 (06:00→21:22)
[2017-01-21 06:43] LABS: Basophils # 0.1 K/mcL (0.0-0.2); Basophils % 0.6 %; Eosinophils # 0.2 K/mcL (0.0-0.6); Eosinophils % 1.8 %; Hematocrit 39.3 % (35.3-44.9); Hemoglobin 12.4 g/dL (11.5-15.4); Immature Granulocytes % 0.9 % (0-4); Lymphocytes # 1.9 K/mcL (0.6-4.6); Lymphocytes % 21.8 %; Mean Corpuscular HGB Conc 31.6 g/dL (31.6-35.5); Mean Corpuscular Hemoglobin 26.4 pg (28.0-33.3); Mean Corpuscular Volume 83.8 fL (83.0-100.0); Monocytes # 0.8 K/mcL (0.0-1.3); Monocytes % 8.9 %; Neutrophils # 5.8 K/mcL (1.6-8.9); Platelet Count 438 K/mcL (140-400); Red Blood Count 4.69 M/mcL (3.82-4.97); Red Cell Distribution Width 14.6 % (11.5-14.5)
[2017-01-21 06:54] LABS: Alanine Aminotransferase 11 Units/L (0-55); Albumin 2.2 g/dL (3.5-5.0); Albumin/Globulin Ratio 0.5 (1.1-2.2); Alkaline Phosphatase 81 Units/L (38-126); Aspartate Amino Transferase 12 Units/L (5-34); BUN/Creatinine Ratio 17 (6-26); Bilirubin,Total 0.2 mg/dL (0.2-1.2); Blood Urea Nitrogen 18 mg/dL (7-20); Calcium 8.9 mg/dL (8.6-10.8); Carbon Dioxide 24 mEq/L (19-29); Chloride 107 mEq/L (98-109); Globulin 4.8 g/dL (2.4-3.5); Glucose 221 mg/dL (70-99); Osmolality,Calculated 301 (280-300); Sodium 141 mEq/L (136-145); eGFR For African Americans > 60 (> 60); eGFR For Non-African Americans 50 (> 60)
[2017-01-21] MEDS: cefTRIAXone 1,000 MG in Water for inj. (sterile) 10 ML IVP SCH (09:25)
[2017-01-21] MEDS: amLODIPine 5 MG TABLET PO SCH (09:25)
[2017-01-21] MEDS: Insulin LISPRO 300 UNITS/3 ML VIAL SQ SCH ×3 (12:02→21:18)
[2017-01-21] MEDS: Insulin DETEMIR 100 UNIT/ML X5UNITS SQ SCH ×2 (12:20→21:21)
--- NOTE | 2017-01-21 16:04 | Spinal Consult Note ---
Date of Encounter: 01/21/17 Time of Encounter: 16:01 Assessment and Plan (1) Spondylolisthesis at L4-L5 level Current Visit: Yes Status: Chronic On exam she is lying in bed in moderate distress secondary to left flank and left leg pain. Afebrile vital signs stable. She she fires all upper motor extremity low groups with good strength. There is no focal weakness in the lower extremities. Her hips move symmetrically without pain. There is no clonus. She has limitation with forward flexion of the lumbar spine. MRI examination of the lumbar spine dated 01/20/2017 reveals a grade 1 degenerative spondylolisthesis at L4-5. There is severe stenosis at L3-4 and L4 -5. There are multilevel degenerative changes and disc desiccation. Impression: 1) lumbar degenerative spondylolisthesis L4-L5 2) severe lumbar stenosis L3-4 and L4-5 3) lumbar radiculopathy Plan: I believe her symptoms may be aggravated by her recent urologic surgery. I would favor nonoperative treatment at this time which may include a formal physical therapy and low back program to include gait training and lower extremity strengthening. In addition, on an outpatient basis we will set up a lumbar epidural steroid injections after follow-up with me in my office in approximately 3 weeks. If she fails nonoperative modalities such as lumbar epidural steroid injections and therapy she may be later consented for operative treatment, after full resolution of her recovery from her urologic procedure. Patient is been given written material including a review of her MRI evaluation and is amenable to the plan. She may follow-up in the spine Center in my office in 3 weeks. There is no acute surgical intervention required at this time. (2) Lumbar stenosis without neurogenic claudication Current Visit: Yes Status: Chronic (3) Lumbar radiculopathy Current Visit: Yes Status: Chronic History of Present Illness Chief complaint: Back pain radiating into left lower extremity, gait impairment HPI: Ms. Younger is a 76 year old female Who has been admitted with multiple comorbidities as well as recent urologic procedures both in [place] and here at [place] who has had at least a month history of worsening back pain and pain into the left lower extremity. She said her symptoms of worsened after her urologic procedure. She had an MRI of her lumbar spine and we are consulted regarding concerning findings on the MRI examination potential treatment options. She denies previous back surgery, bowel symptomatology, she has chronic poor bladder control, no current fevers or chills. She denies focal neurologic weakness. Past Med Surg Social Fam HX - Past Medical History Medical history: diabetes, hypertension Psychiatric history: no psych history - Past Surgical History Surgical History: cholecystectomy, hysterectomy - Social History Smoking Status: Never smoker Smokeless Tobacco Status: No Alcohol use: none Drug use: none - Family History Father History Unknown: Yes Hx Family Neurologic Disorders: Yes (Alzheimer's) Mother Hx Family Cancer: Yes (Unknown) Medications and Allergies Insulin Human Regular [HumuLIN R] 25 - 50 unit SQ TIDWM 01/18/17 [History] Insulin NPH, HUMAN [HumuLIN N] 25 - 35 unit SQ HS 01/18/17 [History] Lisinopril [Zestril] 10 mg PO DAILY 01/18/17 [History] Losartan [Cozaar] 25 mg PO DAILY 01/18/17 [History] 3 Allergy/AdvReac Type Severity Reaction Status Date / Time No Known Allergies Allergy Verified 01/17/17 17:58 Results - Labs Result Diagrams: 01/21/17 06:03 01/21/17 06:03 Labs: Abnormal lab results MCH 26.4 pg (28.0-33.3) L 01/21/17 06:03 RDW 14.6 % (11.5-14.5) H 01/21/17 06:03 Plt Count 438 K/mcL (140-400) H 01/21/17 06:03 Est GFR (Non-Af Amer) 50 (> 60) L 01/21/17 06:03 Glucose 221 mg/dL (70-99) H 01/21/17 06:03 POC Glucose 305 (58-89) H 01/21/17 11:37 Hemoglobin A1c 7.0 % (-5.6) H 01/18/17 05:18 Calculated Osmolality 301 (280-300) H 01/21/17 06:03 Albumin 2.2 g/dL (3.5-5.0) L 01/21/17 06:03 Globulin 4.8 g/dL (2.4-3.5) H 01/21/17 06:03 Albumin/Globulin Ratio 0.5 (1.1-2.2) L 01/21/17 06:03 Urine Color Red (Yellow) A 01/19/17 11:30 Urine Clarity Turbid (Clear) A 01/19/17 11:30 Urine Protein 100 mg/dL (Neg-Trace) H 01/19/17 11:30 Urine Glucose (UA) >=1000 mg/dL (Normal) H 01/19/17 11:30 Urine Ketones Trace mg/dL (Negative) H 01/19/17 11:30 Urine Blood Large (Negative) H 01/19/17 11:30 Ur Leukocyte Esterase Large (Negative) H 01/19/17 11:30 Urine Microscopic RBC TNTC per hpf (0-3) H 01/19/17 11:30 Urine Microscopic WBC TNTC per hpf (0-3) H 01/19/17 11:30 Ur Squamous Epith Cells Many per lpf (None-Few) H 01/19/17 11:30 H & H 01/21/17 Range/Units 06:03 Hgb 12.4 (11.5-15.4) g/dL Hct 39.3 (35.3-44.9) % All other labs normal. Consult Discharge Plan - Plan Referrals: Goyo Allen MD [Primary Care Provider] -
--- NOTE | 2017-01-21 16:20 | Internal Med Progress Note ---
Date of Encounter: 01/21/17 Time of Encounter: 11:00 - Assessment and plan (1) Obstruction of left ureteropelvic junction (UPJ) due to stone Current Visit: Yes Status: Acute Assessment and plan: s/p ureter stent need to f/u with urologist as an out pt (2) Acute cystitis without hematuria Current Visit: Yes Status: Acute Assessment and plan: her urine cx - no growth so far d/c abx (3) Spondylolisthesis at L4-L5 level Current Visit: Yes Status: Chronic Assessment and plan: reviewed MRI of Lumbar spine results showed severe spinal stenosis with spondylolisthesis at L4-L5 consulted Spine surgery Dr. Mcgregor who recommend conservative management with PT / OT, Epidural inj as an out pt and close f/u with him as an out pt PT / OT eval ordered may need short term PT / OT at [facility] aware of it. (4) Diabetes Current Visit: Yes Status: Chronic Assessment and plan: Accu check aC/hs & SSI Qualifiers: Diabetes mellitus type: type 2 Diabetes mellitus complication status: with diabetic arthropathy Diabetes mellitus complication detail: with other arthropathy Diabetes mellitus intermediate insulin use: without intermediate use Qualified Code(s): E11.618 - Type 2 diabetes mellitus with other diabetic arthropathy (5) Hypertension Current Visit: Yes Status: Acute Assessment and plan: fluctuating..mostly due to pain cont Norvasc...cont close monitoring for now Qualifiers: Hypertension type: essential hypertension Qualified Code(s): I10 - Essential (primary) hypertension (6) DVT prophylaxis Current Visit: Yes Status: Acute Assessment and plan: on SQ heparin (7) Morbid obesity due to excess calories Current Visit: Yes Status: Chronic (8) Lumbar stenosis without neurogenic claudication Current Visit: Yes Status: Chronic (9) Lumbar radiculopathy Current Visit: Yes Status: Chronic - Subjective Interval history: Ms. Younger is a 76 year old female past medical history of diabetes, hypertension, and kidney stone presents as a transfer from [facility] due to left 0.9 mm calculus at the left UPJ. The patient reports that her low back pain started a week ago and is progressively worsened. She states that the pain radiates from her low back to her hips and down her legs bilaterally. Pt was admitted in the hospital and started her on empirical abx [place]. Pt was evaluated by Urology who did a cystoscope with Left ureter stent placement on . Pt is still c/o low back pain, radiating to her left leg mainly. Denied any CP / SOB - Constitutional Vitals: Temp Pulse Resp BP Pulse Ox 98.3 F 89 16 174/74 96 01/21/17 14:30 01/21/17 14:30 01/21/17 14:30 01/21/17 14:30 01/21/17 14:30 General appearance: Present: A&O X 3, pleasant, no acute distress - Head Head exam: Present: atraumatic, normal inspection - Neck Neck exam general surgery: Present: supple - Respiratory Respiratory exam: Present: decreased breath sounds. Absent: rales, respiratory distress, rhonchi, wheezes - Cardiovascular Cardiovascular exam: Present: RRR, +S1, +S2. Absent: tachycardia - GI/Abdominal GI/Abdominal exam: Present: normal bowel sounds, soft. Absent: rigid, tenderness - Extremities Exam Extremities exam: Absent: calf tenderness, pedal edema, tenderness - Back Exam Back exam: Present: vertebral tenderness. Absent: CVA tenderness (L), CVA tenderness (R) - Neurological Exam Neurological exam: Present: alert, oriented X3 - Psychiatric Psychiatric exam: Present: normal affect, normal mood - Skin Skin exam: Absent: rash Internal Medicine: Result - Labs CBC & Chem 7: 01/21/17 06:03 01/21/17 06:03 Labs: Short CBC 01/21/17 Range/Units 06:03 WBC 8.8 (4.3-11.1) K/mcL Hgb 12.4 (11.5-15.4) g/dL Hct 39.3 (35.3-44.9) % Plt Count 438 H (140-400) K/mcL Neutrophils # 5.8 (1.6-8.9) K/mcL BMP 01/21/17 06:03 Sodium 141 Potassium 4.0 Chloride 107 Carbon Dioxide 24 BUN 18 Creatinine 1.07 Glucose 221 H Calcium 8.9 Liver Function 01/21/17 Range/Units 06:03 Total Bilirubin 0.2 (0.2-1.2) mg/dL AST 12 (5-34) Units/L ALT 11 (0-55) Units/L Alkaline Phosphatase 81 (38-126) Units/L Albumin 2.2 L (3.5-5.0) g/dL - Impressions Impressions Lumbar Spine MRI 01/20/17 15:24 IMPRESSION: 1. Severe spinal canal stenosis at L3-L4 secondary to posterior disc osteophyte complex, broad disc bulge, facet degenerative changes, ligamentum flavum thickening. There is apparent compression of the nerve roots at this level with the proximal nerve roots appearing curved. Clinical correlation with patient's symptoms is recommended. 2. Additional multilevel degenerative changes at L4-L5 and L5-S1, as detailed above. 3. Apparent right renal lesion measuring 5.5 cm. This may be artifactual as this is only seen on localization images; however, follow-up renal ultrasound is recommended to exclude renal cell carcinoma. 4. Partially imaged cystic lesion within right adnexa. This is abnormal for patient of this age. Consider follow-up pelvic ultrasound. D/ / 01/20/2017 17:48:13 Prasad Baltazar MD / eliana Interpreting Provider: Prasad Baltazar MD - VTE Documentation of Mechanical Device: Intermittent pneumatic compression device Consult Discharge Plan - Plan Referrals: Goyo Allen MD [Primary Care Provider] -
[2017-01-22] MEDS: Insulin LISPRO 300 UNITS/3 ML VIAL SQ SCH ×5 (03:19→21:06)
[2017-01-22] MEDS: *HR* Morphine 2 MG/ML SYRINGE IVP PRN (04:15)
[2017-01-22] MEDS: *HR* Heparin 5,000 UNIT/ML VIAL SQ SCH ×3 (06:16→21:12)
[2017-01-22 06:50] LABS: Basophils # 0.1 K/mcL (0.0-0.2); Basophils % 0.6 %; Eosinophils # 0.2 K/mcL (0.0-0.6); Eosinophils % 1.9 %; Immature Granulocytes % 0.5 % (0-4); Lymphocytes # 2.1 K/mcL (0.6-4.6); Lymphocytes % 20.1 %; Mean Corpuscular HGB Conc 32.5 g/dL (31.6-35.5); Monocytes # 0.8 K/mcL (0.0-1.3); Monocytes % 7.6 %; Neutrophils # 7.2 K/mcL (1.6-8.9); Platelet Count 442 K/mcL (140-400); Red Blood Count 4.82 M/mcL (3.82-4.97); Red Cell Distribution Width 14.4 % (11.5-14.5); Segmented Neutrophils % 69.3 %
[2017-01-22 07:12] LABS: Potassium 4.2 mEq/L (3.5-4.5)
[2017-01-22 07:13] LABS: Albumin 2.3 g/dL (3.5-5.0); Albumin/Globulin Ratio 0.5 (1.1-2.2); Bilirubin,Total 0.2 mg/dL (0.2-1.2); Calcium 9.2 mg/dL (8.6-10.8); Globulin 5.1 g/dL (2.4-3.5); Total Protein 7.4 g/dL (6.0-8.3)
[2017-01-22] MEDS: amLODIPine 5 MG TABLET PO SCH (08:05)
[2017-01-22] MEDS: Insulin DETEMIR 100 UNIT/ML X5UNITS SQ SCH ×2 (12:50→21:11)
--- NOTE | 2017-01-22 14:21 | Internal Med Progress Note ---
Date of Encounter: 01/22/17 Time of Encounter: 10:30 - Assessment and plan (1) Obstruction of left ureteropelvic junction (UPJ) due to stone Current Visit: Yes Status: Acute Assessment and plan: s/p ureter stent need to f/u with urologist as an out pt (2) Acute cystitis without hematuria Current Visit: Yes Status: Acute Assessment and plan: her urine cx - no growth so far d/c abx (3) Spondylolisthesis at L4-L5 level Current Visit: Yes Status: Chronic Assessment and plan: reviewed MRI of Lumbar spine results showed severe spinal stenosis with spondylolisthesis at L4-L5 Spine surgery Dr. Mcgregor recommended conservative non operable management with PT / OT, Epidural inj as an out pt and close f/u with him as an out pt PT / OT eval done - recommending ECF placement for short term PT / OT SW is working on placement (4) Diabetes Current Visit: Yes Status: Chronic Assessment and plan: BS fairly controlled Reviewed HbA1c 7.0 so INc Levemir to 20 U BID + Cont ISS Qualifiers: Diabetes mellitus type: type 2 Diabetes mellitus complication status: with diabetic arthropathy Diabetes mellitus complication detail: with other arthropathy Diabetes mellitus computer terminal operator insulin use: without computer terminal operator use Qualified Code(s): E11.618 - Type 2 diabetes mellitus with other diabetic arthropathy (5) Hypertension Current Visit: Yes Status: Acute Assessment and plan: fluctuating..mostly due to pain cont Norvasc also resumed home med Losartan 25mg today Qualifiers: Hypertension type: essential hypertension Qualified Code(s): I10 - Essential (primary) hypertension (6) DVT prophylaxis Current Visit: Yes Status: Acute Assessment and plan: on SQ heparin (7) Morbid obesity due to excess calories Current Visit: Yes Status: Chronic (8) Lumbar stenosis without neurogenic claudication Current Visit: Yes Status: Chronic (9) Lumbar radiculopathy Current Visit: Yes Status: Chronic - Subjective Interval history: Ms. Younger is a 76 year old female past medical history of diabetes, hypertension, and kidney stone presents as a transfer from [facility] due to left 0.9 mm calculus at the left UPJ. The patient reports that her low back pain started a week ago and is progressively worsened. She states that the pain radiates from her low back to her hips and down her legs bilaterally. Pt was admitted in the hospital and started her on empirical abx Rocpehin. Pt was evaluated by Urology who did a cystoscope with Left ureter stent placement on . Her low back pain is tolerable with current meds, however still c/o low back pain, radiating to her left leg mainly. Denied any CP / SOB - Constitutional Vitals: Temp Pulse Resp BP Pulse Ox 97.5 F L 77 16 140/72 94 01/22/17 13:47 01/22/17 13:47 01/22/17 13:47 01/22/17 13:47 01/22/17 13:47 General appearance: Present: A&O X 3, pleasant, no acute distress - Head Head exam: Present: atraumatic, normal inspection - Respiratory Respiratory exam: Present: decreased breath sounds, wheezes (mild). Absent: rales, respiratory distress, rhonchi - Cardiovascular Cardiovascular exam: Present: RRR, +S1, +S2. Absent: tachycardia - GI/Abdominal GI/Abdominal exam: Present: normal bowel sounds, soft. Absent: rebound, rigid, tenderness - Extremities Exam Extremities exam: Absent: calf tenderness, pedal edema, tenderness - Neurological Exam Neurological exam: Present: alert, oriented X3, strengths equal and symetr throughout. Absent: pronater drift, facial droop, speech deficit - Psychiatric Psychiatric exam: Present: normal affect, normal mood Internal Medicine: Result - Labs CBC & Chem 7: 01/22/17 06:23 01/22/17 06:23 Labs: Short CBC 01/22/17 Range/Units 06:23 WBC 10.4 (4.3-11.1) K/mcL Hgb 13.0 (11.5-15.4) g/dL Hct 40.0 (35.3-44.9) % Plt Count 442 H (140-400) K/mcL Neutrophils # 7.2 (1.6-8.9) K/mcL BMP 01/22/17 06:23 Sodium 137 Potassium 4.2 Chloride 102 Carbon Dioxide 23 BUN 21 H Creatinine 1.17 H Glucose 341 H Calcium 9.2 Liver Function 01/22/17 Range/Units 06:23 Total Bilirubin 0.2 (0.2-1.2) mg/dL AST 13 (5-34) Units/L ALT 14 (0-55) Units/L Alkaline Phosphatase 98 (38-126) Units/L Albumin 2.3 L (3.5-5.0) g/dL - Impressions Impressions Retroperitoneum Ultrasound 01/21/17 17:30 IMPRESSION: Echogenic foci in both renal sinuses, suggestive of nephrolithiasis. Minimal left hydronephrosis. No obvious renal mass identified, noting that the inferior pole of the right kidney is not completely visualized. If there is persistent clinical concern, consider CT for further evaluation. D/ / Peter Julian MD / Peter Julian MD Interpreting Provider: Peter Julian MD - VTE Documentation of Mechanical Device: Intermittent pneumatic compression device Consult Discharge Plan - Plan Referrals: Goyo Allen MD [Primary Care Provider] -
[2017-01-23] MEDS: *HR* Heparin 5,000 UNIT/ML VIAL SQ SCH ×2 (05:46→12:59)
[2017-01-23 05:51] LABS: Basophils # 0.1 K/mcL (0.0-0.2); Basophils % 0.4 %; Eosinophils # 0.4 K/mcL (0.0-0.6); Eosinophils % 2.9 %; Hematocrit 39.5 % (35.3-44.9); Hemoglobin 12.9 g/dL (11.5-15.4); Immature Granulocytes % 0.6 % (0-4); Lymphocytes # 2.4 K/mcL (0.6-4.6); Lymphocytes % 19.7 %; Mean Corpuscular HGB Conc 32.7 g/dL (31.6-35.5); Mean Corpuscular Hemoglobin 27.1 pg (28.0-33.3); Monocytes # 0.9 K/mcL (0.0-1.3); Monocytes % 7.4 %; Neutrophils # 8.3 K/mcL (1.6-8.9); Platelet Count 440 K/mcL (140-400); Red Blood Count 4.76 M/mcL (3.82-4.97); Red Cell Distribution Width 14.5 % (11.5-14.5)
[2017-01-23 05:56] LABS: Albumin 2.3 g/dL (3.5-5.0); Albumin/Globulin Ratio 0.5 (1.1-2.2); Bilirubin,Total 0.2 mg/dL (0.2-1.2); Calcium 9.2 mg/dL (8.6-10.8); Globulin 4.7 g/dL (2.4-3.5); Potassium 3.9 mEq/L (3.5-4.5)
[2017-01-23 07:10] VITALS: BP 162/78
[2017-01-23] MEDS: amLODIPine 5 MG TABLET PO SCH (08:39)
[2017-01-23] MEDS: Insulin DETEMIR 100 UNIT/ML X5UNITS SQ SCH (08:39)
[2017-01-23] MEDS: Insulin LISPRO 300 UNITS/3 ML VIAL SQ SCH ×3 (08:40→17:14)
--- NOTE | 2017-01-23 13:38 | Discharge Summary ---
Date of Encounter: 01/23/17 Time of Encounter: 13:38 - Discharge Diagnosis (1) Obstruction of left ureteropelvic junction (UPJ) due to stone Priority: Primary Status: Acute (2) Acute cystitis without hematuria Priority: Primary Status: Acute (3) Spondylolisthesis at L4-L5 level Priority: Secondary Status: Chronic (4) Diabetes Priority: Secondary Status: Chronic Qualifiers: Diabetes mellitus type: type 2 Diabetes mellitus complication status: with diabetic arthropathy Diabetes mellitus complication detail: with other arthropathy Diabetes mellitus residential insulin use: without rodent exterminator use Qualified Code(s): E11.618 - Type 2 diabetes mellitus with other diabetic arthropathy (5) Hypertension Priority: Secondary Status: Acute Qualifiers: Hypertension type: essential hypertension Qualified Code(s): I10 - Essential (primary) hypertension (6) DVT prophylaxis Priority: Secondary Status: Acute (7) Morbid obesity due to excess calories Priority: Secondary Status: Chronic (8) Lumbar stenosis without neurogenic claudication Priority: Secondary Status: Chronic (9) Lumbar radiculopathy Priority: Secondary Status: Chronic - Discharge Medications Prescriptions: Oxycodone HCl/Acetaminophen [Percocet 5-325 mg Tablet] 1 each PO TID PRN #20 tablet PRN Reason: Pain Home Medications: Losartan [Cozaar] 25 mg PO DAILY 01/18/17 [History] Amoxicillin/Clavulanate [Augmentin] 875 mg PO BIDWM #10 tablet 01/23/17 [Rx] Insulin DETEMIR [Levemir] 30 unit SQ BID [id number] 01/23/17 [Rx] Insulin Human Regular [HumuLIN R] 10 unit SQ TIDWM #0 01/23/17 [Rx] Insulin LISPRO [HumaLOG] 0 units SQ TIDAC vial 01/23/17 [Rx] Oxycodone HCl/Acetaminophen [Percocet 5-325 mg Tablet] 1 each PO TID PRN #20 tablet 01/23/17 [Rx] amLODIPine [Norvasc] 10 mg PO DAILY tablet 01/23/17 [Rx] Allergies/Adverse Reactions: 3 Allergy/AdvReac Type Severity Reaction Status Date / Time No Known Allergies Allergy Verified 01/17/17 17:58 Procedures/tests Complete & Pending: Procedures Performed prior 72 hours Category Date Time Status US retroperitoneal comp [US] Stat Exams 01/21/17 17:30 Completed MR lumbar spine wo con [MR] Routine MRI 01/20/17 15:24 Completed Date of admission: 01/18/17 07:49 Primary care physician: Goyo Allen MD Consults: 01/20/17 05:43 Consult to Tube Knitter [CONS] Routine Reason for SW Consult: Pt leaves at home alone, Pt states that she eats the same thing everyday because she cannot get along very well. Pt states It's hard for her to use her walker. 01/20/17 06:51 Consult to Physical Therapy [CONS] Routine Comment: Evaluate, develop and implement POC Reason for Consult: Pt lives alone, Pt having trouble getting around. 01/20/17 06:53 OT [Consult to Occupational Therapy] [CONS] Routine Comment: Evaluate, develop and implement POC Reason for Consult: Pt having trouble getting around, ;lives alone 01/21/17 11:31 Consult to Orthopedic Surgery [CONS] Routine Consulting Provider: Francisco Mcgregor Jr Reason for Consult: Severe low back pain with spinal stenosis Call Completed: Yes - Patient Status Disposition: Transfer SNF Condition: Good Overall status at discharge: patient is back to baseline - Discharge Instructions Follow Up With: Goyo Allen MD [Primary Care Provider] - Francisco Mcgregor Jr, MD [Partnered Physician] - Sotero Jin MD [Partnered Physician] - Additional Instructions: Need to f/u with urologist Dr. Jin in 1 week Need to f/u with Spine surgery Dr. Mcgregor in 1-2 weeks - Diet and Activity Activity: as per physical therapy, increase activity as tolerated Diet: low salt diet Hospital course: Ms. Younger is a 76 year old female past medical history of diabetes, hypertension, and kidney stone presents as a transfer from [facility] due to left 0.9 mm calculus at the left UPJ. The patient reports that her low back pain started a week ago and is progressively worsened. She states that the pain radiates from her low back to her hips and down her legs bilaterally. Pt was admitted in the hospital and started her on empirical abx Rocpehin. Pt was evaluated by Urology who did a cystoscope with Left ureter stent placement on . Apparently few weeks ago she had right percutaneous nephrolithotomy with nephrostomy tube placement and stent placement. However when she presented to ER, she does not have any more nephrosotmy tube. Also her CT scan showed right ureteral stent in good position with residual stones and right lower pole. Regarding her low back pain, she did have MRI of spine done here which showed severe spinal stenosis with spondylolisthesis at L4-L5. We consulted Spine surgery Dr. Mcgregor, who recommend conservative management with PT / OT, Epidural inj as an out pt and close f/u with him as an out pt. So will d/c her to ECF today in stable condition for short term PT / OT. I did talk to [facility]' certified nursing attendant Lily @ [phone] and updated her about current care as well as answered all the questions. - Time Spent with Patient Total time spent providing and/or coordinating discharge services: Greater than 30 minutes (spent 35 minutes on this pt's discharge summary, due to her complex medical problem and need to talk to ECF staff to update the hospital course) - Constitutional Vitals: Temp Pulse Resp BP Pulse Ox 97.9 F 80 15 162/78 95 01/23/17 07:03 01/23/17 07:03 01/23/17 07:03 01/23/17 07:03 01/23/17 07:03 General appearance: Present: A&O X 3, pleasant, no acute distress - Head Head exam: Present: atraumatic, normal inspection - Neck Neck exam general surgery: Present: supple - Respiratory Respiratory exam: Present: decreased breath sounds. Absent: rales, respiratory distress, rhonchi, wheezes - Cardiovascular Cardiovascular exam: Present: RRR, +S1, +S2 - GI/Abdominal GI/Abdominal exam: Present: normal bowel sounds, soft. Absent: rebound, rigid, tenderness - Extremities Exam Extremities exam: Absent: calf tenderness, pedal edema, tenderness - Back Exam Back exam: Absent: CVA tenderness (L), CVA tenderness (R) - Psychiatric Psychiatric exam: Present: normal affect, normal mood - VTE Documentation of Mechanical Device: Intermittent pneumatic compression device
--- NOTE | 2017-01-23 13:48 | Physician Discharge Referral ---
ExtendedCare Referral Info Transfer To: ECF Provider in Charge after Transfer: PCP Institutional Level of Care: Skilled - Diagnosis (1) Obstruction of left ureteropelvic junction (UPJ) due to stone Status: Acute (2) Acute cystitis without hematuria Status: Acute (3) Spondylolisthesis at L4-L5 level Status: Chronic (4) Diabetes Status: Chronic (5) Hypertension Status: Acute (6) DVT prophylaxis Status: Acute (7) Morbid obesity due to excess calories Status: Chronic (8) Lumbar stenosis without neurogenic claudication Status: Chronic (9) Lumbar radiculopathy Status: Chronic - Transfer Medications Prescriptions: Oxycodone HCl/Acetaminophen [Percocet 5-325 mg Tablet] 1 each PO TID PRN #20 tablet PRN Reason: Pain Home Medications: Losartan [Cozaar] 25 mg PO DAILY 01/18/17 [History] Amoxicillin/Clavulanate [Augmentin] 875 mg PO BIDWM #10 tablet 01/23/17 [Rx] Insulin DETEMIR [Levemir] 30 unit SQ BID [id number] 01/23/17 [Rx] Insulin Human Regular [HumuLIN R] 10 unit SQ TIDWM #0 01/23/17 [Rx] Insulin LISPRO [HumaLOG] 0 units SQ TIDAC vial 01/23/17 [Rx] Oxycodone HCl/Acetaminophen [Percocet 5-325 mg Tablet] 1 each PO TID PRN #20 tablet 01/23/17 [Rx] amLODIPine [Norvasc] 10 mg PO DAILY tablet 01/23/17 [Rx] Allergies/Adverse Reactions: 3 Allergy/AdvReac Type Severity Reaction Status Date / Time No Known Allergies Allergy Verified 01/17/17 17:58 - Respiratory Orders Smoking Cessation: Smoking cessation has been advised. For more information, call the [place] Tobacco Quit Line at 3-624-VSXONOW. CERTIFICATION: I certify that the transfer of the above named patient to an Extended Care Facility is necessary for the continuing treatment of the diagnosis listed. The above information is true and accurate reflection of patient's current condition. Confidential - Redisclosure prohibited without a patient's written consent.
[2017-01-23] MEDS ORDERED: Insulin DETEMIR 100 UNIT/ML X5UNITS SQ SCH (21:00)
== END 2017-01-23 19:30 | DRG 694 ==
LOC: 3ANU → SUATTDRO 16:29
PROVIDERS: ADMIT Internal Medicine; ATTEND Family Medicine